=== PATIENT | male | born 1980 | race Caucasian/White ===

== ENCOUNTER 2018-06-10 10:58 | Outpatient (CLI) | payer OTHER ==
--- NOTE | 2018-06-10 12:10 | RAD ---
THREE VIEWS LEFT FOOT: Comparison: None. History: Swelling of the left foot and left foot pain. FINDINGS: Three views of the left foot shows no evidence of acute fracture or dislocation. Mild diffuse soft ti ssue swelling is seen. No significant degenerative changes are present. A small ossific fragment is s een adjacent to the head of the great toe and metacarpal. This could be sequellae from remote trauma. IMPRESSION: No evidence of acute osseous abnormality. POS: [facility]
== END 2018-06-10 10:59 | disposition home or self-care (01) ==
LOC: MADRAD 10:58
PROVIDERS: ATTEND Nurse Practitioner Family
DX: M20.12 Hallux valgus (acquired), left foot (principal); M10.9 Gout, unspecified

== ENCOUNTER 2019-08-07 16:18 | Emergency (ER) | payer OTHER ==
[2019-08-07] MEDS ORDERED: HYDROcodone/Acetaminophen 5/325 mg Tablet ONE (18:25)
[2019-08-07] MEDS ORDERED: Ibuprofen 800 MG TAB ONE (18:26)
[2019-08-07] MEDS ORDERED: Oseltamivir 75 MG CAP ONE (18:26)
== END 2019-08-07 18:42 | disposition home or self-care (01) ==
LOC: MADERS 16:18
DX: J10.1 Influenza due to other identified influenza virus with other respiratory manifestations (principal)
CPT/HCPCS: 87804; 99283

== ENCOUNTER 2020-01-25 08:37 | Emergency (ER) | payer OTHER ==
[2020-01-25] MEDS ORDERED: predniSONE 20 MG TAB ONE (09:38)
== END 2020-01-25 09:43 | disposition home or self-care (01) ==
LOC: MADERS 08:37
DX: M10.9 Gout, unspecified (principal); Z87.891 Personal history of nicotine dependence
CPT/HCPCS: 99283; J7512

== ENCOUNTER 2020-05-27 08:20 | Emergency (ER) | payer OTHER | END 2020-05-27 08:58 | disposition home or self-care (01) | LOC: MADERS 08:20 | DX: M10.9 Gout, unspecified (principal); Z87.891 Personal history of nicotine dependence | CPT/HCPCS: 99283 ==

== ENCOUNTER 2020-11-30 20:23 | Emergency (ER) | payer OTHER ==
[2020-11-30] MEDS ORDERED: predniSONE 20 MG TAB ONE (21:15)
== END 2020-11-30 21:19 | disposition home or self-care (01) ==
LOC: MADERS 20:23
DX: L25.5 Unspecified contact dermatitis due to plants, except food (principal); M10.9 Gout, unspecified; Z87.891 Personal history of nicotine dependence; Z79.899 Other long term (current) drug therapy
CPT/HCPCS: 99282; J7512

== ENCOUNTER 2021-03-21 12:50 | Emergency (ER) | payer OTHER | END 2021-03-21 15:47 | disposition home or self-care (01) | LOC: MADERS 12:50 | DX: S42.402A Unspecified fracture of lower end of left humerus, initial encounter for closed fracture (principal); M10.9 Gout, unspecified; Z87.891 Personal history of nicotine dependence; Z79.899 Other long term (current) drug therapy; W18.39XA Other fall on same level, initial encounter | CPT/HCPCS: 24670 ==

== ENCOUNTER 2021-11-09 13:30 | Emergency (ER) | payer OTHER ==
[2021-11-09 14:36] LABS: ALT (SGPT) 28 U/L (8-55); AST (SGOT) 17 U/L (5-34); Albumin 4.1 g/dL (3.5-5.0); Alkaline Phosphatase 109 U/L (40-110); Anion Gap 13 mmol/L (10-20); BUN (Urea Nitrogen) 4 mg/dL (8.9-20.6); Bilirubin, Total 0.2 mg/dL (0.2-1.2); Calc. Creatinine Clearance 0 mL/min (70-130); Calcium 9.2 mg/dL (7.8-10.44); Carbon Dioxide 34 mmol/L (22-29); Chloride 98 mmol/L (98-107); Globulin 2.5 g/dL (2.4-3.5); Glucose 115 mg/dL (70-105); Magnesium 2.1 mg/dL (1.6-2.6); Potassium 3.2 mmol/L (3.5-5.1); Protein, Total 6.6 g/dL (6.0-8.3); Sodium 142 mmol/L (136-145)
[2021-11-09] MEDS ORDERED: Potassium Chloride 20 MEQ TAB ONE (14:46)
== END 2021-11-09 15:05 | disposition home or self-care (01) ==
LOC: MADERS 13:30
DX: E87.6 Hypokalemia (principal); E87.3 Alkalosis; M10.9 Gout, unspecified; Z87.891 Personal history of nicotine dependence; Z79.899 Other long term (current) drug therapy
CPT/HCPCS: 36415; 83735; 99284

== ENCOUNTER 2022-02-09 15:37 | Outpatient (CLI) | payer OTHER ==
[2022-02-09 16:30] LABS: ALT (SGPT) 35 U/L (8-55); AST (SGOT) 19 U/L (5-34); Albumin 4.7 g/dL (3.5-5.0); Alkaline Phosphatase 128 U/L (40-110); Anion Gap 16 mmol/L (10-20); BUN (Urea Nitrogen) 4 mg/dL (8.9-20.6); Bilirubin, Total 0.4 mg/dL (0.2-1.2); Calc. Creatinine Clearance 0 mL/min (70-130); Carbon Dioxide 28 mmol/L (22-29); Chloride 103 mmol/L (98-107); Estimated GFR 110; Globulin 2.8 g/dL (2.4-3.5); Glucose 91 mg/dL (70-105); Potassium 5.2 mmol/L (3.5-5.1); Protein, Total 7.5 g/dL (6.0-8.3); Sodium 142 mmol/L (136-145); Uric Acid 5.4 mg/dL (3.5-7.2)
== END 2022-02-09 15:38 | disposition home or self-care (01) ==
LOC: MADLABSP 15:37
PROVIDERS: ATTEND Family Medicine
DX: E87.6 Hypokalemia (principal); M10.9 Gout, unspecified
CPT/HCPCS: 80053; 84550